=== PATIENT | male | born 1970 | race Two or more races ===

== ENCOUNTER 2019-10-06 02:02 | Emergency (ER) | payer SELFPAY ==
[~2019-10-06] VITALS: Ht 167.6 cm; Wt 72.6 kg
[2019-10-06 02:09] VITALS: BP 0/0
[2019-10-06] MEDS ORDERED: EPINEPHrine HCL 1 MG/10 ML SYRG ONE (02:30)
[2019-10-06] MEDS ORDERED: EPINEPHrine HCL 1 MG/10 ML SYRG IV ONE ×3 (03:00→13:20)
== END 2019-10-06 03:23 | disposition expired ==
LOC: ER 02:05 → EDBD 02:05 → ER 03:23
DX: S27.1XXA Traumatic hemothorax, initial encounter (principal); S21.111A Laceration without foreign body of right front wall of thorax without penetration into thoracic cavity, initial encounter; R06.89 Other abnormalities of breathing; W45.8XXA Other foreign body or object entering through skin, initial encounter; Y93.89 Activity, other specified; Y92.89 Other specified places as the place of occurrence of the external cause; Y99.8 Other external cause status
CPT/HCPCS: 31500; 32556; 36430; 86900; 86901; 86920; 92950; 99291; J0171; P9016